=== PATIENT | male | born 1980 | race African-American/Black ===

== ENCOUNTER 2020-01-21 14:07 | Emergency (ER) | payer SELFPAY ==
[~2020-01-21] VITALS: Ht 175.3 cm; Wt 68.0 kg
[2020-01-21] MEDS ORDERED: ACETAMINOPHEN 325MG TABLET PO ONE (14:45)
[2020-01-21 16:14] VITALS: BP 130/70
== END 2020-01-21 16:16 | disposition home or self-care (01) ==
LOC: ER 14:07
DX: U07.1 COVID-19 (principal)
CPT/HCPCS: 71045; 99283